=== PATIENT | female | born 1970 | race Caucasian/White ===

== ENCOUNTER 2017-09-18 14:07 | Emergency (ER) | payer OTHER ==
[~2017-09-18] VITALS: Ht 152.4 cm; Wt 95.0 kg
[~2017-09-18 14:07] MED LIST: ALBU0.086 INH; VENTAER INH
[2017-09-18 14:09] VITALS: BP 140/93; PULSE 101; RESP 16; TEMP 98.4; O2SAT 96
[2017-09-18] MEDS ORDERED: HYDR25TA5 PO (14:30)
[2017-09-18] MEDS ORDERED: METF500T PO (14:30)
[2017-09-18] MEDS ORDERED: LISI-519 PO (14:30)
--- NOTE | 2017-09-18 14:36 | PD ---
HPI Chief Complaint: Diabetic Time Seen by Provider: 14:33 Travel History International Travel<30 days: No Contact w/Intl Traveler<30days: No Traveled to known affect area: No History of Present Illness HPI Patiently recently diagnosed with new diagnosis of diabetes. Started on metformin. However since starting the metformin every time she took the metformin she developed diarrhea. And because she noticed that 3 times in a row she then stopped taking her metformin. Patient presents to the ER complaining of elevated blood glucose near 300 according to her home monitor. Patient states that she spoke with her primary care who stated to stop taking the metformin. Patient denies any active nausea, vomiting, fever, headache, chest pain, abdominal pain, cough, runny nose or sore throat. Improved by not taking metformin diarrhea seems to get worse with taking metformin. No known drug allergy Past medical history significant for hypertension, asthma, diabetes, cholecystectomy, and a section PFS Past Medical History Hx Anticoagulant Therapy: No Asthma: Yes Cardiovascular Problems: Yes (HTN) Diabetes: Yes Diminished Hearing: No Immunizations Current: Yes ?: Not Past Surgical History Section: Yes (X 1) Cholecystectomy: Yes Social History Alcohol Use: No Tobacco Use: No Substance Use: No Allergies-Medications (Allergen,Severity, Reaction): Coded Allergies: adhesive (Unverified Allergy, Intermediate, Rash, 09/18/17) Reported Meds & Prescriptions Reported Meds & Active Scripts Active Reported Metformin (Metformin HCl) 500 Mg Tab 500 Mg PO BIDPC Hydrochlorothiazide 25 Mg Tab 25 Mg PO DAILY Lisinopril 5 Mg Tab 5 Mg PO DAILY Review of Systems General / Constitutional: No: Fever Eyes: No: Visual changes HENT: No: Headaches Cardiovascular: No: Chest Pain or Discomfort Respiratory: No: Shortness of Breath Gastrointestinal: Positive: Diarrhea Genitourinary: No: Dysuria Musculoskeletal: No: Pain Skin: No Rash Neurologic: No: Weakness Psychiatric: No: Depression Endocrine: No: Polydipsia Hematologic/Lymphatic: No: Easy Bruising Physical Exam Narrative GENERAL: SKIN: Warm and dry. HEAD: Atraumatic. Normocephalic. EYES: Pupils equal and round. No scleral icterus. No injection or drainage. ENT: No nasal bleeding or discharge. Mucous membranes pink and moist. NECK: Trachea midline. No JVD. CARDIOVASCULAR: Regular rate and rhythm. RESPIRATORY: No accessory muscle use. Clear to auscultation. Breath sounds equal bilaterally. GASTROINTESTINAL: Abdomen soft, non-tender, nondistended. MUSCULOSKELETAL: Extremities without clubbing, cyanosis, or edema. No obvious deformities. NEUROLOGICAL: Awake and alert. No obvious cranial nerve deficits. Motor grossly within normal limits. Five out of 5 muscle strength in the arms and legs. Normal speech. PSYCHIATRIC: Appropriate mood and affect; insight and judgment normal. Data Data Last Documented VS Vital Signs Date Time Temp Pulse Resp B/P (MAP) Pulse Ox O2 Delivery O2 Flow Rate FiO2 09/18/17 14:09 98.4 101 16 140/93 (109) 96 Orders Orders Glipizide (Glucotrol) (09/18/17 15:00) Ondansetron Odt (Zofran Odt) (09/18/17 15:00) [facility] Medical Decision Making Medical Screen Exam Complete: Yes Emergency Medical Condition: Yes Medical Record Reviewed: Yes Differential Diagnosis Adverse effect to medication Narrative Course Advised patient that he is her symptoms of diarrhea very, and effects secondary to metformin use.. Patient given additional diabetes education. Patient given a dose of glipizide 5 mg tablets here in the department, observed for an hour, with repeated Accu-Cheks, which did not show any worsening of her hyperglycemia , and a gradual decrease of her hyperglycemia. Patient is able to tolerate p.o. , able to ambulate on her own without any additional assistance, patient is nontoxic appearing. Diagnosis Primary Impression: Metformin adverse effect Additional Impression: Hyperglycemia due to type 2 diabetes mellitus Qualified Codes: E11.65 - Type 2 diabetes mellitus with hyperglycemia Patient Instructions: General Instructions, Managing Diabetes During Sick Days (ED), Meal Planning with Diabetes Exchanges (DC), Type 2 Diabetes in Adults (ED) Scripts Ondansetron Odt (Zofran Odt) 4 Mg Tab 4 MG SL Q6HR Y for Nausea/Vomiting, #20 TAB 0 Refills Prov: Marc Bautista MD 09/18/17 Glipizide (Glipizide) 5 Mg Tab 5 MG PO DAILY for Blood Sugar Management, #30 TAB 0 Refills Take 30 minutes before a meal Prov: Marc Bautista MD 09/18/17 Disposition: 01 DISCHARGE HOME Condition: Stable Marc Bautista MD Sep 18, 2017 14:36
[2017-09-18] MEDS ORDERED: glipiZIDE 5 MG TAB PO ONE (15:00)
[2017-09-18] MEDS ORDERED: ONDANSETRON ODT 4 MG TAB PO ONE (15:00)
[2017-09-18] MEDS ORDERED: GLIP5TAB8 PO (15:52)
[2017-09-18] MEDS ORDERED: ZOFR4TAB3 SL (15:53)
[2017-09-18 16:21] VITALS: BP 100/59; PULSE 88; RESP 16; O2SAT 97
== END 2017-09-18 16:31 | disposition home or self-care (01) ==
LOC: PHED 14:07
DX: R19.7 Diarrhea, unspecified (principal); T38.3X5A Adverse effect of insulin and oral hypoglycemic [antidiabetic] drugs, initial encounter; E11.65 Type 2 diabetes mellitus with hyperglycemia; I10 Essential (primary) hypertension; Z79.84 Long term (current) use of oral hypoglycemic drugs; Z87.09 Personal history of other diseases of the respiratory system
CPT/HCPCS: 99284

== ENCOUNTER 2018-04-05 06:31 | Observation (INO) ==
[2018-04-05] MEDS ORDERED: RESP: Racemic Epinephrine 2.25% 0.5 ML Neb NEB ONE (06:45)
[2018-04-05] MEDS ORDERED: Sodium Chlor 0.9% Inj 500 ML IV.SIG SCH (07:00)
--- NOTE | 2018-04-05 07:00 | ED ---
HPI General Chief Complaint: Asthma Stated Complaint: sore throat/trouble breathing Time Seen by Provider: 04/05/18 06:42 Source: patient Mode of arrival: ambulatory Limitations: no limitations History of Present Illness HPI Narrative: 47-year-old female with history of asthma and diabetes presents to the emergency department for 5 days of sore throat with progressive acute worsening this morning and trouble breathing. Patient states she did notice that she was having some wheezing and tried to use her inhaler but was unsuccessful secondary to marked difficulty with breathing and sore throat pain. Patient denies having any fever or chills. This morning she noted some mild diaphoresis. No chest pain. Patient has had some difficulty swallowing but has been able to manage her own saliva. Patient was not able to take her blood pressure medication this morning lisinopril due to difficulty swallowing. Patient is noticed a change in her voice. Patient has had increasing hoarseness. Patient has had nonproductive cough. No posttussive emesis. No abdominal pain. Patient has not been taking antibiotic and has been compliant with her medications. Patient does have history of seasonal allergies and environmental as well. No report of orthopnea or PND. No recent steroid therapy. MD complaint: shortness of breath, wheezing and other (sore throat) Onset (ago): day(s) (5) Severity: severe Context: recent URI and allergen exposure Associated symptoms: dry cough Asthma History: history of prior ED visit Treatments Prior to Arrival: inhaled bronchodilator (Attempted rescue inhaler but was unsuccessful.) Related Data Current Asthma Therapy: inhaled bronchodilator Home Medications Medication Instructions Recorded Confirmed glipizide 10 mg PO BID 04/05/18 04/05/18 hydrochlorothiazide 25 mg PO DAILY 04/05/18 04/05/18 lisinopril 5 mg PO DAILY 04/05/18 04/05/18 Allergies Allergy/AdvReac Type Severity Reaction Status Date / Time adhesive Allergy Intermediate Rash Verified 04/05/18 06:54 Review of Systems ROS: all other systems reviewed are negative [facility] Medical History Medical History Asthma (Acute) Diabetes (Acute) Hypertension (Acute) Surgical History Surgical History Hx of section (Acute) Hx of cholecystectomy (Acute) Social History Social History Substance History: No History of Abuse Second Hand Smoke Exposure: Yes Smoking Status: Never smoker How Often Do You Have a Drink Containing Alcohol: Never Recent Travel in [facility] within the Last 8 Weeks: No Recent Out of Country Travel within the Last 8 Weeks: No Immunization History Tetanus Immunization: Unsure Hx Influenza Vaccine This Season: No Exam Narrative Exam Narrative: GENERAL: Well-nourished, well-developed patient. Patient presents with stridor and hoarseness and work of breathing with accessory muscle use. SKIN: Focused skin assessment warm/dry. HEAD: Normocephalic. EYES: No scleral icterus. No injection or drainage. ENT: Mucous membranes moist posterior pharynx erythema with posterior pharyngeal drainage no exudative change no edema. NECK: Supple, trachea midline. No JVD or lymphadenopathy. CARDIOVASCULAR: Increased regular rate and rhythm without murmurs, gallops, or rubs. RESPIRATORY: Breath sounds equal bilaterally expiratory wheezing with accessory muscle use; also noted stridor and hoarseness. GASTROINTESTINAL: Abdomen soft, non-tender, nondistended. MUSCULOSKELETAL: No cyanosis, or edema. BACK: Nontender without obvious deformity. No CVA tenderness. Course Reevaluation(s) Reevaluation #1: Patient improved after receiving the racemic epi and DuoNeb nebulizer treatment. Patient continues to complain of sore throat and difficulty breathing. Patient agrees to stay in the hospital for observation and continued treatment for her asthma exacerbation and pharyngitis Time: 08:10 Initial Documented Vital Signs Temperature 98.1 F 04/05/18 06:38 Pulse Rate 133 H 04/05/18 06:38 Respiratory Rate 20 04/05/18 06:38 Blood Pressure 163/94 H 04/05/18 06:38 Pulse Oximetry 98 04/05/18 06:38 Last Documented Vital Signs Temperature 98.1 F 04/05/18 06:38 Pulse Rate 86 04/05/18 07:10 Respiratory Rate 22 04/05/18 07:10 Blood Pressure 144/91 H 04/05/18 06:47 Pulse Oximetry 98 04/05/18 06:53 Medical Decision Making MDM Narrative Medical decision making narrative: 47-year-old female presents to the emergency department with respiratory distress with complaint of severe throat pain difficulty swallowing mild stridor hoarseness and expiratory wheezing with history of asthma. Patient placed on director orange found to be tachycardic and mildly hypertensive unable to take her morning blood pressure medication secondary to painful swallowing and intolerance of oral hydration. IV access obtained specimens collected and sent for resulting patient administered Decadron, times one racemic epinephrine treatment and DuoNeb updraft x1. At 7 AM patient's care signed over to oncoming physician for ongoing management of exacerbation asthma pharyngitis CT soft tissue of the neck has been ordered to evaluate epiglottis. Medical Screen Exam Complete: Yes Emergency Medical Condition: Yes Differential Diagnosis Differential Diagnosis: Exacerbation asthma, bronchitis, pneumonia, sinusitis, pharyngitis, laryngitis, tracheitis, retropharyngeal abscess, unlikely epiglottitis Medical Records Medical records reviewed: Yes I reviewed the patient's medical records. Lab Data Result diagrams: 04/05/18 06:48 04/05/18 06:48 Lab Results 04/05/18 04/05/18 04/05/18 Range/Units 06:45 06:48 06:48 CBC w Diff Auto diff final WBC 12.5 H (4.0-11.0) th/mm3 RBC 4.57 (4.00-5.30) mil/mm3 Hgb 14.4 (11.6-15.3) gm/dL Hct 41.6 (35.0-46.0) % MCV 91.2 (80.0-100.0) fL MCH 31.6 (27.0-34.0) pg MCHC 34.7 (32.0-36.0) % RDW 12.3 (11.6-17.2) % Plt Count 275 (150-450) th/mm3 MPV 9.4 (7.0-11.0) fL Neut % (Auto) 67.1 (16.0-70.0) % Lymph % (Auto) 25.3 (9.0-44.0) % Mathews % (Auto) 4.9 (0.0-8.0) % Eos % (Auto) 1.0 (0.0-4.0) % Baso % (Auto) 1.7 (0.0-2.0) % Neut # (Auto) 8.4 H (1.8-7.7) th/mm3 Lymph # (Auto) 3.2 (1.0-4.8) th/mm3 Mathews # (Auto) 0.6 (0.0-0.9) th/mm3 Eos # (Auto) 0.1 (0.0-0.4) th/mm3 Baso # (Auto) 0.2 (0.0-0.2) th/mm3 WBC Differential . Differential Comment . Sodium 138 (136-145) meq/L Potassium 3.5 (3.5-5.1) meq/L Chloride 101 (98-107) meq/L Carbon Dioxide 23.9 (21.0-32.0) meq/L Anion Gap 13 (5-15) meq/L BUN 15 (7-18) mg/dL Creatinine 0.83 (0.50-1.00) mg/dL Estimated GFR 73 L (>89) mL/min POC Glucose (68-110) mg/dl Random Glucose 223 H (74-106) mg/dL Lactic Acid (0.4-2.0) mmol/L Calcium 8.8 (8.5-10.1) mg/dL Magnesium 1.6 (1.5-2.5) mg/dL Total Bilirubin 0.6 (0.2-1.0) mg/dL AST 11 L (15-37) U/L ALT 22 (10-53) U/L Alkaline Phosphatase 80 (45-117) U/L Total Creatine Kinase 31 (26-192) U/L Troponin I Less than 0.02 L (0.02-0.05) ng/mL B-Natriuretic Peptide 27 (0-100) pg/mL Total Protein 8.2 (6.4-8.2) g/dL Albumin 3.8 (3.4-5.0) g/dL 04/05/18 04/05/18 Range/Units 06:50 06:59 CBC w Diff WBC (4.0-11.0) th/mm3 RBC (4.00-5.30) mil/mm3 Hgb (11.6-15.3) gm/dL Hct (35.0-46.0) % MCV (80.0-100.0) fL MCH (27.0-34.0) pg MCHC (32.0-36.0) % RDW (11.6-17.2) % Plt Count (150-450) th/mm3 MPV (7.0-11.0) fL Neut % (Auto) (16.0-70.0) % Lymph % (Auto) (9.0-44.0) % Mathews % (Auto) (0.0-8.0) % Eos % (Auto) (0.0-4.0) % Baso % (Auto) (0.0-2.0) % Neut # (Auto) (1.8-7.7) th/mm3 Lymph # (Auto) (1.0-4.8) th/mm3 Mathews # (Auto) (0.0-0.9) th/mm3 Eos # (Auto) (0.0-0.4) th/mm3 Baso # (Auto) (0.0-0.2) th/mm3 WBC Differential Differential Comment Sodium (136-145) meq/L Potassium (3.5-5.1) meq/L Chloride (98-107) meq/L Carbon Dioxide (21.0-32.0) meq/L Anion Gap (5-15) meq/L BUN (7-18) mg/dL Creatinine (0.50-1.00) mg/dL Estimated GFR (>89) mL/min POC Glucose 225 H (68-110) mg/dl Random Glucose (74-106) mg/dL Lactic Acid 2.7 H (0.4-2.0) mmol/L Calcium (8.5-10.1) mg/dL Magnesium (1.5-2.5) mg/dL Total Bilirubin (0.2-1.0) mg/dL AST (15-37) U/L ALT (10-53) U/L Alkaline Phosphatase (45-117) U/L Total Creatine Kinase (26-192) U/L Troponin I (0.02-0.05) ng/mL B-Natriuretic Peptide (0-100) pg/mL Total Protein (6.4-8.2) g/dL Albumin (3.4-5.0) g/dL Imaging Data Radiologist's impression: Chest X-Ray 04/05/18 06:42 CONCLUSION: Negative examination. Soft Tissue Neck CT 04/05/18 06:44 CONCLUSION: 1. Symmetric diffuse swelling of the tonsillar pillars raising the possibility of tonsillitis. Clinical correlation is recommended. Discharge Plan Discharge Disposition Patient Disposition: 02 Transfer to [facility] Discharge Condition Condition: Fair Discharge Details Discharge Comment: Case discussed with the admitting physician who agrees to admit the patient to [facility] Diagnosis: Acute respiratory distress, Asthma exacerbation, Acute pharyngitis Physicians Team ED Provider: S[place] Primary Care Provider: UNKNOWN, Rxs /Orders / Referrals /Forms Prescriptions: No Action glipizide 10 mg Tablet 10 mg PO BID RF: 0 lisinopril 5 mg Tablet 5 mg PO DAILY RF: 0 hydrochlorothiazide 25 mg Tablet 25 mg PO DAILY RF: 0 Discharge Interventions Interventions: Vital Signs Last Done: 04/05/18 06:47 Status ED Status: With Doctor
[2018-04-05 07:05] LABS: Baso # (Auto) 0.2 th/mm3 (0.0-0.2); Baso % (Auto) 1.7 % (0.0-2.0); Eos # (Auto) 0.1 th/mm3 (0.0-0.4); Hematocrit 41.6 % (35.0-46.0); Hemoglobin 14.4 gm/dL (11.6-15.3); Lymph # (Auto) 3.2 th/mm3 (1.0-4.8); Lymph % (Auto) 25.3 % (9.0-44.0); Mean Corpuscular HGB Conc 34.7 % (32.0-36.0); Mean Corpuscular Hemoglobin 31.6 pg (27.0-34.0); Mean Corpuscular Volume 91.2 fL (80.0-100.0); Mean Platelet Volume 9.4 fL (7.0-11.0); Mono # (Auto) 0.6 th/mm3 (0.0-0.9); Mono % (Auto) 4.9 % (0.0-8.0); Neut # (Auto) 8.4 th/mm3 (1.8-7.7); Neut % (Auto) 67.1 % (16.0-70.0); Platelet Count 275 th/mm3 (150-450); Red Blood Count 4.57 mil/mm3 (4.00-5.30); Red Cell Distribution Width 12.3 % (11.6-17.2); White Blood Count 12.5 th/mm3 (4.0-11.0)
--- NOTE | 2018-04-05 07:14 | XR ---
EXAM DATE: 04/05/2018 6:42 AM EDT AGE/SEX: 47 years / Female INDICATIONS: Extreme shortness of breath. Sore throat x 5 days with increasing difficulty in breathi ng & swallowing. CLINICAL DATA: This is the patient's initial encounter. Patient reports that signs and symptoms have been present for 4 - 6 days and indicates a pain score of 6/10. MEDICAL/SURGICAL HISTORY: Asthma. Hypertension. Cholecystectomy. section. COMPARISON: No prior exams available for comparison. FINDINGS: A single AP view of the chest demonstrates the lungs to be symmetrically aerated without evidence of mass, infiltrate or effusion. The cardiomediastinal contours are unremarkable. Osseous structures a re intact. CONCLUSION: Negative examination. Electronically signed by: Oh Chau MD 04/05/2018 7:13 AM EDT
[2018-04-05 07:25] LABS: Chloride 101 meq/L (98-107); Potassium 3.5 meq/L (3.5-5.1); Sodium 138 meq/L (136-145)
[2018-04-05 07:30] LABS: Calcium 8.8 mg/dL (8.5-10.1)
[2018-04-05 07:31] LABS: Albumin 3.8 g/dL (3.4-5.0); Anion Gap 13 meq/L (5-15); Blood Urea Nitrogen 15 mg/dL (7-18); Carbon Dioxide 23.9 meq/L (21.0-32.0); Glucose,Random 223 mg/dL (74-106); Magnesium 1.6 mg/dL (1.5-2.5)
[2018-04-05 07:34] LABS: Alanine Aminotransferase 22 U/L (10-53); Aspartate Aminotransferase 11 U/L (15-37); Glomerular Filtration Rate 73 mL/min (>89)
[2018-04-05 07:36] LABS: Total Protein 8.2 g/dL (6.4-8.2)
[2018-04-05 07:37] LABS: Alkaline Phosphatase 80 U/L (45-117)
[2018-04-05 07:52] LABS: Creatine Kinase 31 U/L (26-192)
--- NOTE | 2018-04-05 08:00 | CT ---
EXAM DATE: 04/05/2018 6:59 AM EDT AGE/SEX: 47 years / Female INDICATIONS: Sore throat with difficulty swallowing and breathing. CLINICAL DATA: This is the patient's initial encounter. Patient reports that signs and symptoms have been present for 4 - 6 days and indicates a pain score of 8/10. MEDICAL/SURGICAL HISTORY: Asthma. Diabetes. Hypertension. section. Cholecystectomy. RADIATION DOSE: 20.36 CTDI (mGy) COMPARISON: No prior exams available for comparison. TECHNIQUE: Helical acquisition was performed using a multirow detector CT scanner during the adminis tration of 70 ml Omnipaque 350 (iohexol) nonionic water-soluble contrast as a single exam dose. Usi ng automated exposure control and adjustment of the mA and/or kV according to patient size, radiation dose was kept as low as reasonably achievable to obtain optimal diagnostic quality images. DICOM fo rmat image data is available electronically for review and comparison. FINDINGS: Nasopharynx: The nasopharyngeal airway has a normal configuration. No mucosal thickening or mass is seen. Oropharynx: The intrinsic muscles of the tongue are symmetric. There is symmetric diffuse swelling o f the tonsillar pillars raising the possibility of tonsillitis. Clinical correlation is recommended. The prevertebral soft tissues are not thickened. Larynx: The supraglottic, glottic, and infraglottic structures are intact. Parapharyngeal: The parapharyngeal space is intact. Salivary Glands: The parotid and submandibular glands are intact. Lymph Nodes: Scattered top normal size internal jugular chain lymph nodes are noted bilaterally. The left jugulodigastric lymph node is the largest lymph node and measures 14 mm in transverse dimension . Thyroid: Homogeneous enhancement without evidence of nodule. Bones: Unremarkable. CONCLUSION: 1. Symmetric diffuse swelling of the tonsillar pillars raising the possibility of tonsillitis. Clini stephanie correlation is recommended. Electronically signed by: Oh Chau MD 04/05/2018 7:58 AM EDT
--- NOTE | 2018-04-05 09:26 | P.HP ---
History of Present Illness Service: [facility] adult med Primary Care Physician: UNKNOWN Chief Complaint: sore throat, sob History of Present Illness: 47-year-old female with history of asthma and diabetes presents to the emergency department for appx 7 days of sore throat with progressive acute worsening this morning and trouble breathing. Patient states she did notice that she was having some wheezing and tried to use her inhaler but was unsuccessful secondary to marked difficulty with breathing and sore throat pain. Reports it has been several years since she has had an asthma exacerbation and rarely has a. Patient denies having any fever or chills, but did feel warm yesterday. This morning she noted some mild diaphoresis. No chest pain. Patient has had some difficulty swallowing but has been able to manage her own saliva. Patient was not able to take her blood pressure medication this morning, lisinopril and hctz due to difficulty swallowing. Patient has noticed a change in her voice. Patient has had increasing hoarseness. Patient has had nonproductive cough. No posttussive emesis. No abdominal pain. Patient has not been taking an antibiotic and has been compliant with her medications. Patient does have history of seasonal allergies and environmental as well. No report of orthopnea or PND. No recent steroid therapy. ER evaluation noted initially for patient being somewhat tachycardic and tachypneic. She was given Decadron as well as racemic epi and is received antibiotic as well. She apparently was stridorous on arrival and having difficulty breathing but she is improved now. Her oxygen saturations on room air have remained stable. Her wheezing had resolved but is returning now to some degree. Her biggest complaint on my exam is sore throat. Lab data noted for elevated blood sugars in the 220s, lactic acid elevated at 2.7 and white count minimally elevated 5. CT scan neck revealed diffuse swelling of the tonsillar pillars consistent with possible tonsillitis. There was no obvious abscess or epiglottitis. SH Patient is and lives with her and younger son Works in [employer] in [place] Denies any tobacco, alcohol or illicit drug use. It is noted that her does smoke cigarettes She had previously lived in [place] and prior to that [place] but is been in this area for 7 years. - Diagnosis (1) Acute pharyngitis (2) Asthma exacerbation (3) Acute respiratory distress (4) Diabetes (5) Hypertension (6) Morbid obesity Review of Systems Constitutional: Reports fatigue, Reports lack of energy, Reports malaise, Denies anorexia, Denies body ache(s), Denies chills, Denies daytime sleepiness, Denies excessive sweating, Denies fever(s), Denies headache(s), Denies increased appetite, Denies night sweats, Denies weakness, Denies weight gain, Denies weight loss, Denies other Eyes: Denies blind spots, Denies blurry vision, Denies bulging eyes, Denies change in vision, Denies double vision, Denies discharge, Denies dry eyes, Denies floaters, Denies irritation, Denies itchy eyes, Denies loss of vision, Denies pain, Denies requires corrective lenses, Denies sensitivity to light, Denies other Ears, Nose, Mouth, and Throat: Reports change in voice, Reports hoarseness, Reports pain with swallowing, Reports sore throat, Denies abnormal hearing, Denies bleeding gums, Denies bad breath, Denies dental pain, Denies difficulty swallowing, Denies dizziness, Denies dry mouth, Denies ear discharge, Denies ear pain, Denies facial pain, Denies headache(s), Denies hearing loss, Denies lip swelling, Denies nosebleed, Denies mouth lesions, Denies mouth pain, Denies nasal congestion, Denies nasal discharge, Denies nasal obstruction, Denies nasal trauma, Denies neck lump, Denies neck pain, Denies nose pain, Denies poor balance, Denies post nasal drip, Denies ringing in the ears, Denies sinus pain, Denies sinus pressure, Denies throat swelling, Denies tongue swelling, Denies other Cardiovascular: Reports shortness of breath, Denies chest pain, Denies chest pain at rest, Denies chest pain with activity, Denies excessive sweating, Denies fainting, Denies fast heart rate, Denies foot swelling, Denies generalized swelling, Denies irregular heart rhythm, Denies leg pain with activity, Denies leg sores, Denies leg swelling, Denies lightheadedness, Denies radiating jaw, neck or arm pain, Denies rapid, pounding, or irregular heartbeat , Denies shortness of breath with activity, Denies shortness of breath when lying down, Denies shortness of breath causing sudden awakening, Denies slow heart rate, Denies other Respiratory: Reports shortness of breath, Reports stridor, Reports wheezing, Denies change in phlegm color, Denies chest congestion, Denies cough, Denies coughing up blood, Denies excessive phlegm production, Denies pain on inspiration, Denies pain with cough, Denies shortness of breath with activity, Denies snoring, Denies other Gastrointestinal: Denies abdominal pain, Denies belching, Denies black, tarry stools, Denies bloating, Denies bright, red blood in stools, Denies change in bowel habits, Denies constant urge to pass stool, Denies change in stools, Denies coffee ground vomit, Denies constipation, Denies cramping, Denies difficulty swallowing, Denies excessive passing of gas, Denies feeling full early, Denies heartburn, Denies incontinent of stools, Denies loose stools, Denies nausea, Denies pain with swallowing, Denies vomiting, Denies vomiting blood, Denies other Genitourinary: Denies abnormal periods, Denies abnormal vaginal bleeding, Denies absent period, Denies bleeding between periods, Denies blood in urine, Denies difficulty starting urination, Denies difficulty urinating, Denies dribbling after urination, Denies frequent nighttime urination, Denies genital itching, Denies genital lesions, Denies heavy periods, Denies hot flashes, Denies light periods, Denies nipple discharge, Denies painful intercourse, Denies painful periods, Denies painful urination, Denies pelvic pain, Denies prolapse symptoms, Denies sexual problems, Denies side pain, Denies urinary incontinence, Denies urinary urgency, Denies vaginal discharge, Denies vaginal dryness, Denies vaginal odor, Denies vaginal itching, Denies other Musculoskeletal: Denies abnormal walking, Denies back pain, Denies body aches, Denies decreased muscle mass, Denies deformity, Denies joint pain, Denies joint swelling, Denies limited joint movement, Denies loss of height, Denies muscle cramps, Denies muscle weakness, Denies neck pain, Denies numbness, Denies radiating pain into limb, Denies stiffness, Denies tingling, Denies other Neurologic: Denies abnormal hearing, Denies abnormal movements, Denies abnormal speech, Denies abnormal walking, Denies behavioral changes, Denies burning sensations, Denies confusion, Denies dizziness, Denies fainting, Denies frequent falls, Denies headache(s), Denies lack of coordination, Denies localized weakness, Denies loss of vision, Denies memory loss, Denies numbness, Denies other visual disturbances, Denies radiating pain, Denies restless legs, Denies convulsions, Denies seizure-like activity, Denies sensory deficit, Denies tingling, Denies tingling/numbness/burning sensations, Denies tremor(s), Denies unsteadiness, Denies weakness, Denies other Psychiatric: Reports anxiety Endocrine: Reports excessive sweating PMFSH - History History Provided By: Patient - Medical History Medical History: Medical History (Last Updated 04/05/18 @ 09:18 by Reji Mendez MD, PhD) Pharyngitis (Acute) Morbid obesity (Acute) Hypertension (Acute) Asthma (Acute) Diabetes (Acute) - Surgical History Surgical History: Surgical History (Last Reviewed 04/05/18 @ 06:57 by Caren Doran MD) Hx of section Hx of cholecystectomy - Family History Family History: Family History (Last Updated 04/05/18 @ 09:18 by Reji Mendez MD, PhD) Mother Diabetes - Social History I have reviewed the patient's Social History: Yes - Tobacco History Second Hand Smoke Exposure: Yes Tobacco Use In Past 30 Days: No Smoking Status: Never smoker - Alcohol History How Often Do You Have a Drink Containing Alcohol: Never - Substance Use History Substance History: No History of Abuse - Travel History Recent Travel in the [facility] Within the Last 8 Weeks: No Recent Travel Out of the Country Within the Last 8 Weeks: No - Immunization History Tetanus Immunization: Unsure Hx Influenza Vaccine This Season: No Medications and Allergies Active Medications: Active Medications Sodium Chloride (Ns Inj) 500 mls @ 0 mls/hr IV.SIG BOLUS ANA Last Infusion: 04/05/18 08:18 Dose: Infused Allergies Allergy/AdvReac Type Severity Reaction Status Date / Time adhesive Allergy Intermediate Rash Verified 04/05/18 06:54 Home Medications Medication Instructions Recorded Confirmed Type glipizide 20 mg PO BID 04/05/18 04/05/18 History hydrochlorothiazide 25 mg PO DAILY 04/05/18 04/05/18 History lisinopril 10 mg PO DAILY 04/05/18 04/05/18 History Exam Vital signs: Vital Signs 04/05/18 06:38 04/05/18 06:47 04/05/18 06:49 Temperature 98.1 F Pulse Rate 133 H 88 Respiratory Rate 20 22 Blood Pressure 163/94 H 144/91 H Pulse Oximetry 98 100 98 04/05/18 06:53 04/05/18 07:10 Temperature Pulse Rate 109 H 86 Respiratory Rate 28 H 22 Blood Pressure Pulse Oximetry 98 Intake & Output 04/04/18 04/05/18 04/05/18 18:59 06:59 18:59 Intake Total 600 / 600 Balance 600 / 600 Weight 103.3 kg Intake: IV 600 / 600 NS Inj 500 ML @ Wide Open IV. 500 / 500 SIG BOLUS ANA Rx#:[id number] Rocephin Inj 1,000 MG In NS Inj 100 / 100 100 ML @ 200 mls/hr IV.SIG ONCE ONE Rx#:[id number] Narrative: GENERAL: Obese, sitting upright and exam bed. No acute distress. Alert and oriented. This complaint of sore throat. SKIN: Warm and dry. Couple of areas of purpura left forearm. HEAD: Atraumatic. Normocephalic. EYES: Pupils equal and round. No scleral icterus. No injection or drainage. ENT: No nasal bleeding or discharge. Mucous membranes pink and moist. Mild posterior erythema with no obvious exudate. Uvula midline. Airway appears patent. NECK: Trachea midline. No JVD. Mild anterior cervical lymphadenopathy noted. CARDIOVASCULAR: Regular rate and rhythm. RESPIRATORY: Good air movement throughout with some occasional expiratory wheeze. No stridor appreciated on my exam at this point. GASTROINTESTINAL: Abdomen soft, non-tender, nondistended. Hepatic and splenic margins not palpable. MUSCULOSKELETAL: Extremities without clubbing, cyanosis, or edema. No obvious deformities. NEUROLOGICAL: Awake and alert. No obvious cranial nerve deficits. Motor grossly within normal limits. Five out of 5 muscle strength in the arms and legs. Normal speech. PSYCHIATRIC: Appropriate mood and affect; insight and judgment normal. Results - Labs CBC & Chem 7: 04/05/18 06:48 04/05/18 06:48 Labs: Laboratory Results - last 24 hr 04/05/18 04/05/18 04/05/18 06:45 06:48 06:48 CBC w Diff Auto diff final WBC 12.5 H RBC 4.57 Hgb 14.4 Hct 41.6 MCV 91.2 MCH 31.6 MCHC 34.7 RDW 12.3 Plt Count 275 MPV 9.4 Neut % (Auto) 67.1 Lymph % (Auto) 25.3 [place] % (Auto) 4.9 Eos % (Auto) 1.0 Baso % (Auto) 1.7 Neut # (Auto) 8.4 H Lymph # (Auto) 3.2 [place] # (Auto) 0.6 Eos # (Auto) 0.1 Baso # (Auto) 0.2 WBC Differential . Differential Comment . Sodium 138 Potassium 3.5 Chloride 101 Carbon Dioxide 23.9 Anion Gap 13 BUN 15 Creatinine 0.83 Estimated GFR 73 L POC Glucose Random Glucose 223 H Lactic Acid Calcium 8.8 Magnesium 1.6 Total Bilirubin 0.6 AST 11 L ALT 22 Alkaline Phosphatase 80 Total Creatine Kinase 31 Troponin I Less than 0.02 L B-Natriuretic Peptide 27 Total Protein 8.2 Albumin 3.8 04/05/18 04/05/18 06:50 06:59 CBC w Diff WBC RBC Hgb Hct MCV MCH MCHC RDW Plt Count MPV Neut % (Auto) Lymph % (Auto) [place] % (Auto) Eos % (Auto) Baso % (Auto) Neut # (Auto) Lymph # (Auto) [place] # (Auto) Eos # (Auto) Baso # (Auto) WBC Differential Differential Comment Sodium Potassium Chloride Carbon Dioxide Anion Gap BUN Creatinine Estimated GFR POC Glucose 225 H Random Glucose Lactic Acid 2.7 H Calcium Magnesium Total Bilirubin AST ALT Alkaline Phosphatase Total Creatine Kinase Troponin I B-Natriuretic Peptide Total Protein Albumin - Imaging Impressions Chest X-Ray 04/05/18 06:42 CONCLUSION: Negative examination. Soft Tissue Neck CT 04/05/18 06:44 CONCLUSION: 1. Symmetric diffuse swelling of the tonsillar pillars raising the possibility of tonsillitis. Clinical correlation is recommended. Caprini VTE Risk Assessment Caprini VTE Risk Assessment: No/Low Risk (score <= 1) Caprini Risk Assessment Model: Point Value = 1 Point Value = 2 Point Value = 3 Point Value = 5 Age 41-60 Minor surgery BMI > 25 kg/m2 Swollen legs Varicose veins or History of unexplained or recurrent spontaneous Oral contraceptives or hormone replacement Sepsis (< 1 month) Serious lung disease, including pneumonia (< 1 month) Abnormal pulmonary function Acute myocardial infarction Congestive heart failure (< 1 month) History of inflammatory bowel disease Medical patient at bed rest Age 61-74 Arthroscopic surgery Major open surgery (> 45 min) Laparoscopic surgery (> 45 min) Malignancy Confined to bed (> 72 hours) Immobilizing plaster cast Central venous access Age >= 75 History of VTE Family history of VTE Factor V Leiden Prothrombin [id number] Lupus anticoagulant Anticardiolipin antibodies Elevated serum homocysteine Heparin-induced thrombocytopenia Other congenital or acquired thrombophilia Stroke (< 1 month) Elective arthroplasty Hip, pelvis, or leg fracture Acute spinal cord injury (< 1 month) Prophylaxis Regimen: Total Risk Factor Score Risk Level Prophylaxis Regimen 0-1 Low Early ambulation 2 Moderate Order ONE of the following: *Sequential Compression Device (SCD) *Heparin 5000 units SQ BID 3-4 Higher Order ONE of the following medications: *Heparin 5000 units SQ TID *Enoxaparin/Lovenox 40 mg SQ daily (WT < 150 kg, CrCl > 30 mL/min) *Enoxaparin/Lovenox 30 mg SQ daily (WT < 150 kg, CrCl > 10-29 mL/min) *Enoxaparin/Lovenox 30 mg SQ BID (WT < 150 kg, CrCl > 30 mL/min) AND/OR *Sequential Compression Device (SCD) 5 or more Highest Order ONE of the following medications: *Heparin 5000 units SQ TID (Preferred with Epidurals) *Enoxaparin/Lovenox 40 mg SQ daily (WT < 150 kg, CrCl > 30 mL/min) *Enoxaparin/Lovenox 30 mg SQ daily (WT < 150 kg, CrCl > 10-29 mL/min) *Enoxaparin/Lovenox 30 mg SQ BID (WT < 150 kg, CrCl > 30 mL/min) AND *Sequential Compression Device (SCD) Assessment and Plan - Assessment (1) Acute pharyngitis Code(s): J02.9 - Acute pharyngitis, unspecified Status: Acute Plan: Reportedly had stridor on admission. I am not appreciating stridor on my exam now but her wheezing is returning per ER physician and patient reported as well. We will place her in observation and continue steroids, nebulizer and will provide viscous lidocaine as well. She has mild erythema in posterior oropharynx but no appreciated exudate. (2) Asthma exacerbation Code(s): J45.901 - Unspecified asthma with (acute) exacerbation Status: Acute Plan: Generally does not have exacerbations but with the recent upper respiratory symptoms started to have wheezing more the last couple of days per continue nebulizer, steroids, oxygen as needed. She has been given antibiotic as well however the current pharyngitis appears more viral on exam. (3) Acute respiratory distress Code(s): R06.03 - Acute respiratory distress Status: Acute Plan: Doing better presently. Will monitor as noted above. Continue therapy as noted. (4) Diabetes Code(s): E11.9 - Type 2 diabetes mellitus without complications Status: Acute Plan: Patient reportedly could not tolerate metformin as an outpatient due to nausea vomiting. Will provide sliding scale insulin and diabetic diet here. I have encouraged continued weight loss. She reports she has lost about 60 pounds over the last year by increasing her walking activity. Her sugars are still running in the 200s regularly she reports. (5) Hypertension Code(s): I10 - Essential (primary) hypertension Status: Acute (6) Morbid obesity Code(s): E66.01 - Morbid (severe) obesity due to excess calories Status: Acute Plan: Encourage weight loss - Plan Code Status: Full Discussed Condition With: Patient and ER physician. (2) Asthma exacerbation Qualifiers: Asthma severity: mild (4) Diabetes Qualifiers: Diabetes mellitus type: type 2
[2018-04-05] MEDS ORDERED: Dextrose 50% in Water 50 ML Vial IV.PUSH PRN (09:34)
[2018-04-05] MEDS ORDERED: MethylPREDNISolone Sod Succinate Inj 40 MG/ML Vial IV.PUSH SCH (10:00)
[2018-04-05] MEDS: Insulin NovoLOG Aspart Correctional Sugar Inj SQ SCH ×3 (12:00→21:13)
[2018-04-05 14:23] LABS: Mono Screen Neg (Neg)
[2018-04-05] MEDS: MethylPREDNISolone Sod Succinate Inj 40 MG/ML Vial IV.PUSH SCH ×2 (15:04→23:04)
[2018-04-05 16:58] LABS: Hemoglobin A1c 8.1 % (4.3-6.0)
[2018-04-06 06:55] LABS: Hematocrit 36.4 % (35.0-46.0); Hemoglobin 12.7 gm/dL (11.6-15.3); Mean Corpuscular Hemoglobin 32.3 pg (27.0-34.0); Mean Corpuscular Volume 92.2 fL (80.0-100.0); Mean Platelet Volume 9.3 fL (7.0-11.0); Platelet Count 204 th/mm3 (150-450); Red Blood Count 3.95 mil/mm3 (4.00-5.30); Red Cell Distribution Width 12.7 % (11.6-17.2); White Blood Count 15.1 th/mm3 (4.0-11.0)
[2018-04-06] MEDS: MethylPREDNISolone Sod Succinate Inj 40 MG/ML Vial IV.PUSH SCH ×3 (06:59→22:05)
[2018-04-06 07:38] LABS: Calcium 8.9 mg/dL (8.5-10.1); Carbon Dioxide 21.7 meq/L (21.0-32.0); Potassium 4.5 meq/L (3.5-5.1)
[2018-04-06 07:48] LABS: Lymphocytes 12 % (9-44); Monocytes 4 % (0-8); Platelet Estimate Normal (Normal)
[2018-04-06 07:49] LABS: Platelet Morphology Normal (Normal)
--- NOTE | 2018-04-06 08:05 | P.PN ---
Subjective Interval history: Sore throat much improved today. She reports she is at a severity of possible "1 out of 10" compared to an 8-9 out of 10 yesterday she says. She has been tolerating liquids well and will try solid food this morning. Her wheezing has improved. She did not sleep much likely due to the steroid use. We have discussed her sugar elevation as well. Physical Exam Vital signs: Vital Signs 04/05/18 09:42 04/05/18 10:50 04/05/18 12:00 Temperature 97.8 F 98.1 F Pulse Rate 102 H 105 H 103 H Respiratory Rate 20 21 Blood Pressure 138/76 145/89 H 127/75 Pulse Oximetry 98 99 96 04/05/18 13:24 04/05/18 14:00 04/05/18 19:45 Temperature 97.8 F Pulse Rate 106 H 110 H 104 H Respiratory Rate 18 20 Blood Pressure 128/68 Pulse Oximetry 97 95 98 04/05/18 20:00 04/06/18 00:00 04/06/18 07:30 Temperature 97.8 F 98.4 F Pulse Rate 115 H 106 H 99 H Respiratory Rate 18 18 19 Blood Pressure 124/66 Pulse Oximetry 97 96 04/06/18 07:33 Temperature Pulse Rate Respiratory Rate Blood Pressure Pulse Oximetry 99 Intake & Output 04/05/18 04/06/18 04/06/18 18:59 06:59 18:59 Intake Total 840 / 840 1200 / 1200 Output Total 200 / 200 Balance 640 / 640 1200 / 1200 Weight 103.3 kg Intake: IV 600 / 600 1000 / 1000 NS + KCl 20 mEq Inj 1,000 ML @ 1000 / 1000 84 mls/hr IV.CONT .[id number] ANA Rx#:[id number] NS Inj 500 ML @ Wide Open IV. 500 / 500 SIG BOLUS ANA Rx#:[id number] Rocephin Inj 1,000 MG In NS Inj 100 / 100 100 ML @ 200 mls/hr IV.SIG ONCE ONE Rx#:[id number] Oral 240 / 240 200 / 200 Output: Urine 200 / 200 Other: # Voids 2 Narrative: GENERAL: Obese, awake, pleasant and cooperative. No acute distress. SKIN: Warm and dry. HEAD: Atraumatic. Normocephalic. EYES: Pupils equal and round. No scleral icterus. No injection or drainage. ENT: No nasal bleeding or discharge. Mucous membranes pink and moist. Throat with mild erythema but no exudate. Airway patent. NECK: Trachea midline. No JVD. CARDIOVASCULAR: Regular rate and rhythm with rate in the low 100s. RESPIRATORY: No accessory muscle use. Clear to auscultation with exception of occasional expiratory wheeze and few bronchovesicular sounds. Breath sounds equal bilaterally. GASTROINTESTINAL: Abdomen soft, non-tender, nondistended. Hepatic and splenic margins not palpable. MUSCULOSKELETAL: Extremities without clubbing, cyanosis, or edema. No obvious deformities. NEUROLOGICAL: Awake and alert. No obvious cranial nerve deficits. Motor grossly within normal limits. Five out of 5 muscle strength in the arms and legs. Normal speech. PSYCHIATRIC: Appropriate mood and affect; insight and judgment normal. Results - Labs CBC & Chem 7: 04/06/18 06:25 04/06/18 06:25 Laboratory Results - last 24 hr 04/05/18 04/05/18 04/05/18 06:45 06:45 09:50 CBC w Diff WBC RBC Hgb Hct MCV MCH MCHC RDW Plt Count MPV WBC Differential Seg Neuts % (Manual) Band Neuts % (Manual) Lymphocytes % (Manual) Monocytes % (Manual) Abs Neuts (Manual) Differential Comment Platelet Estimate Platelet Morphology Sodium Potassium Chloride Carbon Dioxide Anion Gap BUN Creatinine Estimated GFR POC Glucose Random Glucose Hemoglobin A1c 8.1 H Calcium B-Natriuretic Peptide 27 Monoscreen Neg 04/05/18 04/05/18 04/05/18 11:33 16:42 20:56 CBC w Diff WBC RBC Hgb Hct MCV MCH MCHC RDW Plt Count MPV WBC Differential Seg Neuts % (Manual) Band Neuts % (Manual) Lymphocytes % (Manual) Monocytes % (Manual) Abs Neuts (Manual) Differential Comment Platelet Estimate Platelet Morphology Sodium Potassium Chloride Carbon Dioxide Anion Gap BUN Creatinine Estimated GFR POC Glucose 344 H 301 H 400 H Random Glucose Hemoglobin A1c Calcium B-Natriuretic Peptide Monoscreen 04/06/18 04/06/18 04/06/18 06:25 06:25 07:52 CBC w Diff Slide review pending WBC 15.1 H RBC 3.95 L Hgb 12.7 Hct 36.4 MCV 92.2 MCH 32.3 MCHC 35.0 RDW 12.7 Plt Count 204 MPV 9.3 WBC Differential Manual diff final Seg Neuts % (Manual) 82 H Band Neuts % (Manual) 2 Lymphocytes % (Manual) 12 Monocytes % (Manual) 4 Abs Neuts (Manual) 12.7 H Differential Comment . Platelet Estimate Normal Platelet Morphology Normal Sodium 136 Potassium 4.5 D Chloride 104 Carbon Dioxide 21.7 Anion Gap 10 BUN 16 Creatinine 0.80 Estimated GFR 76 L POC Glucose 342 H Random Glucose 316 H Hemoglobin A1c Calcium 8.9 B-Natriuretic Peptide Monoscreen Microbiology 04/05/18 07:00 Throat Group A Streptococcus Screen (LACHELLE) - Final - Imaging Impressions Soft Tissue Neck CT 04/05/18 06:44 CONCLUSION: 1. Symmetric diffuse swelling of the tonsillar pillars raising the possibility of tonsillitis. Clinical correlation is recommended. Assessment and Plan - Assessment (1) Acute pharyngitis Code(s): J02.9 - Acute pharyngitis, unspecified Status: Acute Plan: Reportedly had stridor on admission. Strep and mono screens negative. Patient clinically improved. Likely viral etiology. Plan discharge home later today on steroid. She does not want the viscous lidocaine as it made her "gag". (2) Asthma exacerbation Code(s): J45.901 - Unspecified asthma with (acute) exacerbation Status: Acute Plan: Generally does not have exacerbations but with the recent upper respiratory symptoms started to have wheezing more the last couple of days. She will continue nebulizer "inhaler at home as needed. Will discontinue antibiotic. Provide a short course of prednisone at home. (3) Acute respiratory distress Code(s): R06.03 - Acute respiratory distress Status: Acute Plan: Doing better presently. Will monitor as noted above. Continue therapy as noted. (4) Diabetes Code(s): E11.9 - Type 2 diabetes mellitus without complications Status: Acute Plan: Patient reportedly could not tolerate metformin as an outpatient due to nausea vomiting. Will provide sliding scale insulin and diabetic diet here. I have encouraged continued weight loss. She reports she has lost about 60 pounds over the last year by increasing her walking activity. Her sugars are still running in the 200s regularly she reports. Will resume her glipizide at home. We will also provide sliding scale insulin for home as her sugars will likely be high the next few days. I have encouraged her to continue monitoring sugars and to inform her primary care physician for possible addition of Jardiance, Tradjenta or similar medication. (5) Hypertension Code(s): I10 - Essential (primary) hypertension Status: Acute (6) Morbid obesity Code(s): E66.01 - Morbid (severe) obesity due to excess calories Status: Acute Plan: Encouraged weight loss (2) Asthma exacerbation Qualifiers: Asthma severity: mild (4) Diabetes Qualifiers: Diabetes mellitus type: type 2
[2018-04-06] MEDS: Insulin NovoLOG Aspart Correctional Sugar Inj SQ SCH ×4 (08:33→22:04)
[2018-04-06] MEDS: Lisinopril 10 MG Tablet PO SCH (08:34)
[2018-04-06] MEDS ORDERED: Acetaminophen 325 MG Tablet PO PRN (14:13)
[2018-04-06] MEDS ORDERED: Ketorolac Inj 30 MG/ML (IVP) Vial IV.PUSH ONE (14:30)
[2018-04-07] MEDS: MethylPREDNISolone Sod Succinate Inj 40 MG/ML Vial IV.PUSH SCH (06:02)
--- NOTE | 2018-04-07 08:26 | P.PN ---
Subjective Interval history: Overall feeling much better. Tolerating p.o. intake well. Sore throat still present but much improved. Desirous of discharge. Physical Exam Vital signs: Vital Signs 04/06/18 09:25 04/06/18 12:00 04/06/18 15:04 Temperature 97.8 F Pulse Rate 95 H Respiratory Rate 17 18 Blood Pressure 124/68 Pulse Oximetry 96 97 04/06/18 16:00 04/06/18 19:57 04/06/18 20:00 Temperature 97.6 F 97.9 F Pulse Rate 80 81 Respiratory Rate 17 18 Blood Pressure 121/61 122/82 Pulse Oximetry 97 97 97 04/07/18 00:00 04/07/18 00:25 04/07/18 08:00 Temperature 97.4 F L Pulse Rate 68 89 Respiratory Rate 18 18 Blood Pressure 118/65 Pulse Oximetry 99 99 Intake & Output 04/06/18 04/07/18 04/07/18 18:59 06:59 18:59 Intake Total 300 / 300 1000 / 1000 Balance 300 / 300 1000 / 1000 Weight 103.3 kg Intake: Oral 300 / 300 1000 / 1000 Other: # Voids 1 3 Narrative: GENERAL: Obese, awake, pleasant and cooperative. No acute distress. SKIN: Warm and dry. HEAD: Atraumatic. Normocephalic. EYES: Pupils equal and round. No scleral icterus. No injection or drainage. ENT: No nasal bleeding or discharge. Mucous membranes pink and moist. Throat with mild erythema but no exudate. Airway patent. NECK: Trachea midline. No JVD. CARDIOVASCULAR: Regular rate and rhythm with rate in the low 100s. RESPIRATORY: No accessory muscle use. Clear to auscultation. Breath sounds equal bilaterally. GASTROINTESTINAL: Abdomen soft, non-tender, nondistended. Hepatic and splenic margins not palpable. MUSCULOSKELETAL: Extremities without clubbing, cyanosis, or edema. No obvious deformities. NEUROLOGICAL: Awake and alert. No obvious cranial nerve deficits. Motor grossly within normal limits. Five out of 5 muscle strength in the arms and legs. Normal speech. PSYCHIATRIC: Appropriate mood and affect; insight and judgment normal. Results - Labs CBC & Chem 7: 04/06/18 06:25 04/06/18 06:25 Laboratory Results - last 24 hr 04/06/18 04/06/18 04/06/18 11:52 16:43 21:00 POC Glucose 360 H 353 H 416 H 04/07/18 07:57 POC Glucose 336 H Microbiology 04/05/18 07:00 Throat Group A Streptococcus Screen/Cult - Preliminary No Beta Streptococci isolated at 24 hours 04/05/18 06:50 Blood - Peripheral Aerobic Blood Culture - Preliminary No growth in 1 day 04/05/18 06:50 Blood - Peripheral Anaerobic Blood Culture - Preliminary No growth in 1 day 04/05/18 06:42 Blood - Peripheral Aerobic Blood Culture - Preliminary No growth in 1 day 04/05/18 06:42 Blood - Peripheral Anaerobic Blood Culture - Preliminary No growth in 1 day Assessment and Plan - Assessment (1) Acute pharyngitis Code(s): J02.9 - Acute pharyngitis, unspecified Status: Acute Plan: Reportedly had stridor on admission. Strep and mono screens negative. Patient clinically improved. Likely viral etiology. Plan discharge home later today on steroid. She does not want the viscous lidocaine as outpatient since it made her "gag". (2) Asthma exacerbation Code(s): J45.901 - Unspecified asthma with (acute) exacerbation Status: Acute Plan: Generally does not have exacerbations but with the recent upper respiratory symptoms started to have wheezing more the last couple of days. She will continue nebulizer inhaler at home as needed. Will discontinue antibiotic. Provide a short course of prednisone at home. (3) Acute respiratory distress Code(s): R06.03 - Acute respiratory distress Status: Acute Plan: Doing better presently. Will monitor as noted above. Continue therapy as noted. (4) Diabetes Code(s): E11.9 - Type 2 diabetes mellitus without complications Status: Acute Plan: Patient reportedly could not tolerate metformin as an outpatient due to nausea vomiting. Will provide sliding scale insulin and diabetic diet here. I have encouraged continued weight loss. She reports she has lost about 60 pounds over the last year by increasing her walking activity. Her sugars are still running in the 200s regularly she reports. Will resume her glipizide at home. We will also provide sliding scale insulin for home as her sugars will likely be high the next few days. I have encouraged her to continue monitoring sugars and to inform her primary care physician for possible addition of Jardiance, Tradjenta or similar medication. (5) Hypertension Code(s): I10 - Essential (primary) hypertension Status: Acute (6) Morbid obesity Code(s): E66.01 - Morbid (severe) obesity due to excess calories Status: Acute Plan: Encouraged weight loss (2) Asthma exacerbation Qualifiers: Asthma severity: mild (4) Diabetes Qualifiers: Diabetes mellitus type: type 2
[2018-04-07] MEDS: Insulin NovoLOG Aspart Correctional Sugar Inj SQ SCH (08:32)
[2018-04-07] MEDS: Lisinopril 10 MG Tablet PO SCH (08:32)
--- NOTE | 2018-04-07 08:32 | P.DS ---
Date of admission: 04/05/18 09:26 Primary care physician: UNKNOWN Anticipated date of discharge: 04/07/18 Brief History from admission: 47-year-old female with history of asthma and diabetes presents to the emergency department for appx 7 days of sore throat with progressive acute worsening this morning and trouble breathing. Patient states she did notice that she was having some wheezing and tried to use her inhaler but was unsuccessful secondary to marked difficulty with breathing and sore throat pain. Reports it has been several years since she has had an asthma exacerbation and rarely has a. Patient denies having any fever or chills, but did feel warm yesterday. This morning she noted some mild diaphoresis. No chest pain. Patient has had some difficulty swallowing but has been able to manage her own saliva. Patient was not able to take her blood pressure medication this morning, lisinopril and hctz due to difficulty swallowing. Patient has noticed a change in her voice. Patient has had increasing hoarseness. Patient has had nonproductive cough. No posttussive emesis. No abdominal pain. Patient has not been taking an antibiotic and has been compliant with her medications. Patient does have history of seasonal allergies and environmental as well. No report of orthopnea or PND. No recent steroid therapy. ER evaluation noted initially for patient being somewhat tachycardic and tachypneic. She was given Decadron as well as racemic epi and is received antibiotic as well. She apparently was stridorous on arrival and having difficulty breathing but she is improved now. Her oxygen saturations on room air have remained stable. Her wheezing had resolved but is returning now to some degree. Her biggest complaint on my exam is sore throat. Lab data noted for elevated blood sugars in the 220s, lactic acid elevated at 2.7 and white count minimally elevated 5. CT scan neck revealed diffuse swelling of the tonsillar pillars consistent with possible tonsillitis. There was no obvious abscess or epiglottitis. SH Patient is and lives with her and younger son Works in [employer] [facility] [employer] in [place] Denies any tobacco, alcohol or illicit drug use. It is noted that her does smoke cigarettes She had previously lived in [place] and prior to that [place] but is been in this area for 7 years. DS: Diagnosis - Discharge Diagnosis (1) Acute pharyngitis Status: Acute (2) Asthma exacerbation Status: Acute (3) Acute respiratory distress Status: Acute (4) Diabetes Status: Chronic (5) Hypertension Status: Chronic (6) Morbid obesity Status: Chronic DS: Medications - Discharge Medications Prescriptions: albuterol sulfate 1.25 mg INHALATION Q4-6H PRN #60 vial PRN Reason: wheeze, sob insulin aspart U-100 [Novolog U-100 Insulin aspart] See Label Instructions .ROUTE .COMPLEX #10 ml insulin syringe-needle U-100 [BD Insulin Syringe] #10 each insulin syringe-needle U-100 #100 each prednisone [Deltasone] 20 mg PO DAILY #5 tab DS: Summary Hospital Course: Patient admitted for exacerbation of asthma and significant pharyngitis and stridor. She was given steroids IV fluid as well as pain medications and viscous lidocaine. [place] and strep screens were negative. This is most likely a viral pharyngitis with his asthma exacerbation. Continue her nebulizers short course of steroid at home. Regarding her diabetes, her sugars were elevated steroids likely. She will resume her home dose of glipizide I have also placed her on sliding scale insulin. She cannot tolerate metformin. I have told her to discuss other options for p.o. medications with her primary care physician as patient has somewhat of a phobia to needles. Her 19-year-old son will help administer her insulin at home and she is agreeable to such. - Time Spent with Patient Total time spent providing and/or coordinating discharge services: Less than 30 minutes - Quality: AMI Clinical Trial Participant: No - Quality: VTE Deep Vein Thrombosis/Pulmonary Embolism Present on Admission: No Exam Vital signs: Vital Signs 04/06/18 09:25 04/06/18 12:00 04/06/18 15:04 Temperature 97.8 F Pulse Rate 95 H Respiratory Rate 17 18 Blood Pressure 124/68 Pulse Oximetry 96 97 04/06/18 16:00 04/06/18 19:57 04/06/18 20:00 Temperature 97.6 F 97.9 F Pulse Rate 80 81 Respiratory Rate 17 18 Blood Pressure 121/61 122/82 Pulse Oximetry 97 97 97 04/07/18 00:00 04/07/18 00:25 04/07/18 08:00 Temperature 97.4 F L Pulse Rate 68 89 Respiratory Rate 18 18 Blood Pressure 118/65 Pulse Oximetry 99 99 Intake & Output 10/09/1904/07/18 04/07/18 18:59 06:59 18:59 Intake Total 300 / 300 1000 / 1000 Balance 300 / 300 1000 / 1000 Weight 103.3 kg Intake: Oral 300 / 300 1000 / 1000 Other: # Voids 1 3 Results Procedures completed during hospitalization: none Labs on day of discharge: Labs from last 24 hours 04/07/18 04/06/18 04/06/18 07:57 21:00 16:43 POC Glucose 336 H 416 H 353 H 04/06/18 11:52 POC Glucose 360 H Preliminary micro results at discharge 04/05/18 07:00 Group A Streptococcus Screen/Cult - Preliminary Throat No Beta Streptococci isolated at 24 hours 04/05/18 06:50 Aerobic Blood Culture - Preliminary Blood - Peripheral No growth in 1 day Anaerobic Blood Culture - Preliminary No growth in 1 day 04/05/18 06:42 Aerobic Blood Culture - Preliminary Blood - Peripheral No growth in 1 day Anaerobic Blood Culture - Preliminary No growth in 1 day - Impressions ITS Impressions Chest X-Ray 04/05/18 06:42 CONCLUSION: Negative examination. Soft Tissue Neck CT 04/05/18 06:44 CONCLUSION: 1. Symmetric diffuse swelling of the tonsillar pillars raising the possibility of tonsillitis. Clinical correlation is recommended. Discharge Plan - Discharge Disposition Patient Disposition: Discharge Home - Discharge Condition Condition: Fair - Discharge Order Discharge Orders: Discharge Order (Routine); Ordered 04/07/18 Ordered By: Reji Mendez - Discharge Details Anticipated Discharge Date: 04/07/18 - Physicians Team Primary Care Provider: UNKNOWN, Attending Provider: Reji Mendez
[2018-04-07 09:18] VITALS: BP 127/70; PULSE 93; RESP 17; TEMP 96.8; O2SAT 95
== END 2018-04-07 10:03 | disposition home or self-care (01) ==
LOC: PHEDA 06:31 → PHED 06:31 → PHEDA 10:51 → PH3 11:10
PROVIDERS: ADMIT Family Medicine; ATTEND Family Medicine